=== PATIENT | female | born 1965 | race Caucasian/White ===

== ENCOUNTER → 2017-03-15 | Outpatient (CLI) | payer BC ==
[~2017-03-15] MED LIST: ASCO-78 PO; DOXY100C2 PO; ERGO500027 PO; GUAI600T47 PO; IOHEXOL 300 MG/ML 75 ML VIAL. IV ONE; IPRA3AMP NEB; KETO10TA PO; LATA2.5D3 EACHEYE; METH4TAB2 PO; Nicotine 21MG TD; ORPH-16 PO
--- NOTE | 2017-03-15 09:35 | RAD ---
CT of the chest with contrast 03/15/2017 Indication: [Cough, shortness of breath. Fever. Elevated white blood cell count] Comparison study: None available] Technique: Multidetector CT imaging of the chest was performed following the administration of intravenous contrast. Multiple reconstructions including sagittal and coronal reconstructions were created on an independent workstation and reviewed. Findings: Heart size is normal. No significant pericardial effusion is seen. No pathologic mediastinal adenopathy is identified. No focal consolidation or infiltrate is seen. There is a 5 mm noncalcified nodule in the left lower lobe (axial image 46) No pneumothorax or pleural effusion is seen. No acute osseous abnormality is identified. Limited visualization of the upper abdomen demonstrates no acute abnormality. Impression: 1. No acute infiltrates are identified. 2. 5 mm noncalcified nodule, left lower lobe. Recommend CT follow-up per Fleischner Society guidelines below Fleischner society pulmonary nodule recommendations 2017 guidelines Solid nodules Solitary nodule size: <6 mm low risk patients: no follow-up needed high risk patients: optional CT at 12 months Solitary nodule size: 6-8 mm low risk patients: follow-up at 6-12 months, then consider further follow-up at 18-24 months high risk patients: initial follow-up CT at 6-12 months and then at 18-24 months if no change Solitary nodule size: >8 mm either low or high risk patients consider follow-up CT at 3 months, and/or CT-PET, and/or biopsy Multiple nodules size: <6 mm low risk patients: no routine follow-up high risk patients: optional CT at 12 months Multiple nodules size: 6-8 mm low risk patients: follow-up at 3-6 months, then consider further follow-up at 18-24 months high risk patients: follow-up at 3-6 months, then at 18-24 months if no change Multiple nodules size: >8 mm low risk patients: follow-up at 3-6 months, then consider further follow-up at 18-24 months high risk patients: follow-up at 3-6 months, then at 18-24 months if no change Note: newly detected indeterminate nodule in persons 35 years of age or older. Low risk patients: minimal or absent history of smoking and or other known risk factors high risk patients: history of smoking or of other known risk factors (e.g. first degree relative with lung cancer, or exposure to asbestos, radon, uranium) nodule up to 8 mm is partly solid or is ground glass further follow-up is required after 24 months to exclude possible slow growing adenocarcinoma (DULCE MARIA) PQRS Compliance Statement: One or more of the following individualized dose reduction techniques were utilized for this examination: 1. Automated exposure control 2. Adjustment of the mA and/or kV according to patient size 3. Use of iterative reconstruction technique
== END | disposition home or self-care (01) ==
LOC: CT 08:44
PROVIDERS: ATTEND Physician Assistant
DX: R05 Cough (principal); R06.02 Shortness of breath; R50.81 Fever presenting with conditions classified elsewhere; R91.8 Other nonspecific abnormal finding of lung field; R91.1 Solitary pulmonary nodule; F17.200 Nicotine dependence, unspecified, uncomplicated
CPT/HCPCS: 71260; Q9967

== ENCOUNTER 2017-03-17 11:54 | Inpatient (IN) | payer BC ==
[~2017-03-17] VITALS: Ht 154.9 cm; Wt 78.0 kg
[2017-03-17] MEDS ORDERED: LATA2.5D3 EACHEYE (14:28)
[2017-03-17] MEDS ORDERED: ERGO500027 PO (14:28)
[2017-03-17] MEDS ORDERED: DOXY100C2 PO (14:28)
[2017-03-17] MEDS ORDERED: ASCO-78 PO (14:28)
[2017-03-17] MEDS ORDERED: GUAI600T47 PO (14:28)
[2017-03-17 14:34] LABS: BACTERIA,URINE 0 /HPF (0-FEW); BILIRUBIN,URINE NEG (NEG); CLARITY,URINE CLEAR; COLOR,URINE STRAW; GLUCOSE,URINE NEG (NEG); NITRITE,URINE NEG (NEG); RBC,URINE 0 /HPF (0-2); SQUAMOUS EPITHELIAL CELL,UR FEW /LPF; UROBILINOGEN,URINE 0.2 mg/dL (0.2 mg/dL); WBC,URINE 0 /HPF (0-4)
--- NOTE | 2017-03-17 14:44 | RAD ---
2 views of the Chest 03/17/2017 3:54 PM Indication: shortness of breath Comparison: None Findings: There is no focal consolidation or infiltrate identified. There is no effusion or pneumothorax. The cardiomediastinal silhouette and pulmonary vasculature are within normal limits. No osseous abnormality is identified. Impression: No evidence of acute cardiopulmonary process.
[2017-03-17 14:49] LABS: BASO # 0.1 x10^3/uL (0.0-0.2); BASO % 1 % (0-3); EOS # 0.1 x10^3/uL (0.0-0.7); EOS % 1 % (0-3); HEMOGLOBIN 15.2 g/dL (12.0-15.5); LYMPH # 2.8 x10^3/uL (1.0-4.8); LYMPH % 27 % (24-48); MEAN CORPUSCULAR HEMOGLOBIN 31 pg (25-35); MEAN CORPUSCULAR HGB CONC 34 g/dL (31-37); MEAN CORPUSCULAR VOLUME 92 fL (79-100); MONO # 0.6 x10^3/uL (0.0-1.1); MONO % 6 % (0-9); NEUT # 6.8 x10^3uL (1.8-7.7); NEUT % 66 % (31-73); PLATELET COUNT 316 x10^3/uL (140-400); RED BLOOD COUNT 4.88 x10^6/uL (3.50-5.40); RED CELL DISTRIBUTION WIDTH 12.6 % (11.5-14.5); WHITE BLOOD COUNT 10.3 x10^3/uL (4.0-11.0)
[2017-03-17] MEDS: IPRATRPIUM/ALBUTEROL 0.5/2.5MG 3 ML NEBU. NEB SCH ×2 (14:53→21:34)
[2017-03-17 15:13] LABS: INFLUENZA A PATIENT NEGATIVE (NEGATIVE)
[2017-03-17 15:14] LABS: INFLUENZA B PATIENT NEGATIVE (NEGATIVE)
[2017-03-17 15:22] VITALS: BP 155/101
[2017-03-17 15:29] LABS: ALBUMIN 3.8 g/dL (3.4-5.0); CALCIUM 9.2 mg/dL (8.5-10.1); CREATININE 0.6 mg/dL (0.6-1.0); GFR 106.3; POTASSIUM 3.7 mmol/L (3.5-5.1); TOTAL BILIRUBIN 0.2 mg/dL (0.2-1.0); TOTAL PROTEIN 7.8 g/dL (6.4-8.2)
[2017-03-17] MEDS: IV NORMAL SALINE 1,000ML 1,000 ML IV SCH (15:34)
[2017-03-17 15:43] VITALS: BP 141/81
[2017-03-17 16:03] LABS: SEDIMENTATION RATE 20 (0-25)
--- NOTE | 2017-03-17 19:07 | EKG ---
[address] [address] Test Date: 2017-03-17 Test Time: 14:40:10 Pat Name: DAJUAN OG Department: Room: 117 A Gender: F Sterile Technician: TEN : 1965 Requested By: FRANDY SANCHEZ Order Number: [id number] Reading MD: Regan Mcdonald Measurements Intervals [place] Rate: 95 P: 62 IN: 164 QRS: 45 QRSD: 70 T: 36 QT: 342 QTc: 433 Interpretive Statements SINUS RHYTHM LEFT ATRIAL ABNORMALITY ABNORMAL ECG RI6.01 No previous ECG available for comparison Electronically Signed On 03-20-2017 16:18:07 [employer] INVESTIGATOR by Regan Mcdonald
[2017-03-17 19:28] VITALS: BP 128/66
[2017-03-17] MEDS: ACETAMINOPHEN 325 MG TABLET PO PRN (19:55)
[2017-03-17] MEDS: NON FORMULARY ITEM (Doxycycline Hyclate 1 CAP) PO SCH (19:55)
[2017-03-17] MEDS: LATANOPROST 0.005% OPHTH SOLUTION 2.5ML BOTTLE. OU SCH (19:56)
[2017-03-17] MEDS: ONDANSETRON PF 4 MG/2 ML VIAL. IV PRN (20:46)
[2017-03-18 00:06] VITALS: BP 135/86
[2017-03-18] MEDS: IPRATRPIUM/ALBUTEROL 0.5/2.5MG 3 ML NEBU. NEB SCH ×3 (05:24→14:28)
[2017-03-18 05:52] VITALS: BP 127/92
[2017-03-18 06:41] LABS: BASO % 0 % (0-3); EOS # 0.1 x10^3/uL (0.0-0.7); EOS % 2 % (0-3); HEMATOCRIT 39.8 % (36.0-47.0); HEMOGLOBIN 13.3 g/dL (12.0-15.5); LYMPH # 3.8 x10^3/uL (1.0-4.8); LYMPH % 46 % (24-48); MEAN CORPUSCULAR HEMOGLOBIN 31 pg (25-35); MEAN CORPUSCULAR HGB CONC 34 g/dL (31-37); MEAN CORPUSCULAR VOLUME 93 fL (79-100); MONO # 0.6 x10^3/uL (0.0-1.1); MONO % 7 % (0-9); NEUT # 3.7 x10^3uL (1.8-7.7); NEUT % 45 % (31-73); PLATELET COUNT 273 x10^3/uL (140-400); RED BLOOD COUNT 4.26 x10^6/uL (3.50-5.40); WHITE BLOOD COUNT 8.2 x10^3/uL (4.0-11.0)
[2017-03-18 06:44] LABS: CALCIUM 8.7 mg/dL (8.5-10.1); CREATININE 0.7 mg/dL (0.6-1.0); GFR 88.9; POTASSIUM 3.8 mmol/L (3.5-5.1)
[2017-03-18] MEDS: NON FORMULARY ITEM (Doxycycline Hyclate 1 CAP) PO SCH ×2 (08:10→20:19)
[2017-03-18] MEDS: IV NORMAL SALINE 1,000ML 1,000 ML IV SCH ×2 (08:11)
[2017-03-18] MEDS: ASCORBIC ACID 500 MG TABLET PO SCH (08:11)
[2017-03-18] MEDS: ACETAMINOPHEN 325 MG TABLET PO PRN ×2 (08:29→14:28)
[2017-03-18] MEDS ORDERED: PNEUMOC CONJ VACC 23-VALENT 0.5 ML VIAL. VAX IM ONE (09:00)
[2017-03-18] MEDS: NICOTINE 21MG PATCH. TD SCH (09:00)
[2017-03-18] MEDS ORDERED: FLU VACC QS2017-18 (36MOS+)/PF 0.5 ML SYRINGE. VAX IM ONE (09:00)
[2017-03-18 11:03] VITALS: BP 124/75
[2017-03-18 15:00] VITALS: BP 164/99
[2017-03-18 19:03] VITALS: BP 126/83
[2017-03-18] MEDS: DOXYCYCLINE HYCLATE 100 MG TABLET PO SCH (20:07)
[2017-03-18] MEDS: methylPREDNISolone SOD SUCC PF 40 MG/ML VIAL. IV SCH (20:19)
[2017-03-18] MEDS: LACTOBACILLUS RHAMNOSUS GG 1 CAPSULE. PO SCH (20:19)
[2017-03-18] MEDS: BACLOFEN 10 MG TABLET PO PRN (20:19)
[2017-03-18] MEDS: LATANOPROST 0.005% OPHTH SOLUTION 2.5ML BOTTLE. OU SCH (20:20)
[2017-03-18 22:36] VITALS: BP 145/88
[2017-03-19] MEDS: IPRATRPIUM/ALBUTEROL 0.5/2.5MG 3 ML NEBU. NEB SCH ×4 (05:23→22:03)
--- NOTE | 2017-03-19 05:49 | PN ---
DATE: SUBJECTIVE: A 51-year-old female with acute respiratory distress, acute bronchospasm, resting fairly comfortably, making a little bit of progress. PHYSICAL EXAMINATION: VITAL SIGNS: Blood pressure 120/70, respiratory rate 20, pulse 83, afebrile. LUNGS: Diminished, poor movement of air, bronchospasms. CARDIOVASCULAR: Regular sinus rhythm, S1, S2. ABDOMEN: Soft, nontender. No rebounding, guarding, positive bowel sounds. PLAN: Continue with present regimen. Add some Solu-Medrol. Make further evaluation on her. IMPRESSION: Therefore, acute respiratory distress, acute bronchospasm. FRANDY SANCHEZ MD DR: YUNIOR/radha JOB#: [id number] / [id number]
[2017-03-19 05:51] VITALS: BP 125/78
[2017-03-19] MEDS: BACLOFEN 10 MG TABLET PO PRN (08:50)
[2017-03-19] MEDS: DOXYCYCLINE HYCLATE 100 MG TABLET PO SCH ×2 (08:50→21:47)
[2017-03-19] MEDS: LACTOBACILLUS RHAMNOSUS GG 1 CAPSULE. PO SCH ×2 (08:50→21:47)
[2017-03-19] MEDS: ASCORBIC ACID 500 MG TABLET PO SCH (08:50)
[2017-03-19] MEDS: methylPREDNISolone SOD SUCC PF 40 MG/ML VIAL. IV SCH ×2 (08:54→21:47)
[2017-03-19] MEDS: NICOTINE 21MG PATCH. TD SCH (09:00)
[2017-03-19] MEDS ORDERED: KETOROLAC 60 MG/2 ML VIAL. IM ONE (09:30)
[2017-03-19 10:58] VITALS: BP 113/74
[2017-03-19] MEDS ORDERED: ORPHENADRINE CITRATE 60 MG/2 ML VIAL. IM ONE (13:00)
[2017-03-19] MEDS: ONDANSETRON PF 4 MG/2 ML VIAL. IV PRN (13:13)
[2017-03-19 15:12] VITALS: BP 141/82
[2017-03-19] MEDS: ORPHENADRINE CITRATE 60 MG/2 ML VIAL. IV PRN (19:41)
[2017-03-19] MEDS: KETOROLAC 60 MG/2 ML VIAL. IM PRN (19:42)
[2017-03-19 19:55] VITALS: BP 130/65
[2017-03-19] MEDS: LATANOPROST 0.005% OPHTH SOLUTION 2.5ML BOTTLE. OU SCH (21:47)
--- NOTE | 2017-03-19 21:55 | PN ---
DATE: 03/19/2017 SUBJECTIVE: The patient in with increased shortness of air, feeling somewhat better on the IV prednisone, but still having some labored breathing. The patient having to use some accessory muscles. OBJECTIVE: VITAL SIGNS: Blood pressure 113/70, respiratory rate 18, pulse 90, afebrile. GENERAL: The patient alert and oriented. LUNGS: Decreased breath sounds throughout. CARDIOVASCULAR: Regular sinus rhythm. ABDOMEN: Soft, nontender. EXTREMITIES: No clubbing, cyanosis, edema. The patient has severe lower back pain with movement. IMPRESSION: Acute bronchitis, acute asthma. FRANDY SANCHEZ MD DR: YUNIOR/radha JOB#: [id number] / [id number]
[2017-03-19 23:39] VITALS: BP_SYST 114; BP_SYST 133; BP_DIAS 65; BP_DIAS 79
[2017-03-20 06:22] VITALS: BP 113/69
[2017-03-20 08:25] LABS: BASO # 0.1 x10^3/uL (0.0-0.2); BASO % 1 % (0-3); EOS % 0 % (0-3); HEMOGLOBIN 13.8 g/dL (12.0-15.5); LYMPH % 14 % (24-48); MEAN CORPUSCULAR HEMOGLOBIN 31 pg (25-35); MEAN CORPUSCULAR HGB CONC 33 g/dL (31-37); MEAN CORPUSCULAR VOLUME 94 fL (79-100); MONO # 0.5 x10^3/uL (0.0-1.1); MONO % 3 % (0-9); NEUT # 11.5 x10^3uL (1.8-7.7); NEUT % 82 % (31-73); PLATELET COUNT 285 x10^3/uL (140-400); RED BLOOD COUNT 4.49 x10^6/uL (3.50-5.40); RED CELL DISTRIBUTION WIDTH 13.2 % (11.5-14.5); WHITE BLOOD COUNT 14.1 x10^3/uL (4.0-11.0)
[2017-03-20 08:32] LABS: ALBUMIN 3.5 g/dL (3.4-5.0); ALBUMIN/GLOBULIN RATIO 0.9 (1.0-1.7); CALCIUM 9.3 mg/dL (8.5-10.1); CREATININE 0.6 mg/dL (0.6-1.0); GFR 106.3; POTASSIUM 4.7 mmol/L (3.5-5.1); TOTAL BILIRUBIN 0.1 mg/dL (0.2-1.0); TOTAL PROTEIN 7.3 g/dL (6.4-8.2)
[2017-03-20] MEDS: NICOTINE 21MG PATCH. TD SCH (09:00)
[2017-03-20] MEDS: methylPREDNISolone SOD SUCC PF 40 MG/ML VIAL. IV SCH (09:20)
[2017-03-20] MEDS: ASCORBIC ACID 500 MG TABLET PO SCH (09:21)
[2017-03-20] MEDS: DOXYCYCLINE HYCLATE 100 MG TABLET PO SCH (09:21)
[2017-03-20] MEDS: LACTOBACILLUS RHAMNOSUS GG 1 CAPSULE. PO SCH (09:21)
[2017-03-20] MEDS: KETOROLAC 60 MG/2 ML VIAL. IM PRN (09:36)
[2017-03-20] MEDS: ORPHENADRINE CITRATE 60 MG/2 ML VIAL. IV PRN (09:39)
[2017-03-20 10:30] LABS: % BANDS 4 % (0-9); % LYMPHS 21 % (24-48); % SEGS 74 % (35-66)
[2017-03-20 10:31] LABS: PLT ESTIMATE ADEQUATE (ADEQUATE)
[2017-03-20 10:44] VITALS: BP 171/83
[2017-03-20] MEDS: IPRATRPIUM/ALBUTEROL 0.5/2.5MG 3 ML NEBU. NEB SCH (10:57)
[2017-03-20] MEDS ORDERED: KETO10TA PO (11:05)
[2017-03-20] MEDS ORDERED: ORPH-16 PO (11:05)
[2017-03-20] MEDS ORDERED: IPRA3AMP NEB (11:05)
[2017-03-20] MEDS ORDERED: Nicotine 21MG TD (11:05)
[2017-03-20] MEDS ORDERED: METH4TAB2 PO (11:05)
[2017-03-24] MEDS ORDERED: NON FORMULARY ITEM (Ergocalciferol (Vitamin D2) (Vitamin D2) 1 CAP) PO SCH (09:00)
== END 2017-03-20 13:55 | disposition home or self-care (01) | DRG 203 ==
LOC: 1 SOUTH 13:28
PROVIDERS: ADMIT Family Medicine; ATTEND Family Medicine
DX: J20.9 Acute bronchitis, unspecified (principal); D72.89 Other specified disorders of white blood cells; F17.210 Nicotine dependence, cigarettes, uncomplicated; J45.909 Unspecified asthma, uncomplicated; M79.1 Myalgia; R91.1 Solitary pulmonary nodule; Z82.49 Family history of ischemic heart disease and other diseases of the circulatory system; Z80.8 Family history of malignant neoplasm of other organs or systems; Z80.51 Family history of malignant neoplasm of kidney; Z90.89 Acquired absence of other organs; Z90.49 Acquired absence of other specified parts of digestive tract; Z98.51 Tubal ligation status; Z88.5 Allergy status to narcotic agent; Z91.040 Latex allergy status; Z88.8 Allergy status to other drugs, medicaments and biological substances; Z91.048 Other nonmedicinal substance allergy status
CPT/HCPCS: 36415; 71046; 71260; 80048; 80053; 81001; 82550; 83880; 84484; 85007; 85025; 85379; 85651; 87040; 87070; 87086; 87205; 87804; 90686; 90732; 93005; 94640; 99406; J1885; J1956; J2360; J2405; J2920; J7620; Q9967; J7030

== ENCOUNTER → 2017-04-26 | Outpatient (CLI) | payer BC ==
[~2017-04-26] MED LIST changes: -IOHEXOL 300 MG/ML 75 ML VIAL. IV ONE
--- NOTE | 2017-04-26 09:27 | RAD ---
DATE: 04/26/2017 EXAM: DIGITAL SCREEN BILAT W/CAD HISTORY: Routine screening COMPARISON: 08/12/2015. This study was interpreted with the benefit of Computerized Aided Detection (CAD). The breast parenchyma shows scattered fibroglandular densities. Breast parenchyma level B. FINDINGS: The scattered fibroglandular densities are somewhat nodular in character. Several small smooth nodules in the lateral aspect of the right breast are unchanged. This probably represents a cluster of intramammary lymph nodes. There is a 7 mm smooth nodule in the left breast at the 12:00 location which was not clearly seen on previous studies. The other scattered fibroglandular densities appear unchanged. No suspicious microcalcifications are evident. IMPRESSION: Probable small developing nodule at the 12:00 location in the left breast. Diagnostic mammograms to include spot compression and straight mediolateral views and probably left breast ultrasound are suggested for further evaluation. BI-RADS CATEGORY: 0 INCOMPLETE: NEEDS ADDITIONAL IMAGING EVALUATION AND/OR PRIOR MAMMOGRAMS FOR COMPARISON. RECOMMENDED FOLLOW-UP: ADD ADDITIONAL IMAGING PQRS compliance statement: Patient information was entered into a reminder system with a target due date for the next mammogram. Mammography is a sensitive method for finding small breast cancers, but it does not detect them all and is not a substitute for careful clinical examination. A negative mammogram does not negate a clinically suspicious finding and should not result in delay in biopsying a clinically suspicious abnormality. "Our facility is accredited by the [employer] Mammography Program."
== END | disposition home or self-care (01) ==
LOC: MAMMO 07:49
PROVIDERS: ATTEND Physician Assistant
DX: Z12.31 Encounter for screening mammogram for malignant neoplasm of breast (principal)
CPT/HCPCS: 77067

== ENCOUNTER → 2017-05-10 | Outpatient (CLI) | payer BC ==
--- NOTE | 2017-05-10 10:41 | RAD ---
DATE: 05/10/2017 EXAM: DIGITAL DIAGNOSTIC LT, BREAST LEFT HISTORY: Suspicious screening study COMPARISON: 04/26/2017, 08/12/2015 This study was interpreted with the benefit of Computerized Aided Detection (CAD). The breast parenchyma shows scattered fibroglandular densities. Breast parenchyma level B. FINDINGS: Additional views including CC tomosynthesis imaging confirm the presence of a smooth 7 mm nodule at the 12:00 location. It is best seen on CC sunny image #49. Other nodular opacities in the left breast appear stable when compared to older exams. Left breast ultrasound, 05/10/2017: A targeted ultrasound exam of the left breast was performed at the 12:00 location. There is a tiny anechoic structure measuring 6 x 4 x 2.5 mm. It has smooth margins with a sharp posterior wall. This has the appearance of a small cyst cluster. There appears to correspond in location to the nodule seen on the mammograms. No other abnormality is seen in this region. IMPRESSION: Small benign-appearing cyst cluster at the 12:00 location in the left breast. BI-RADS CATEGORY: 2 BENIGN FINDING(S) RECOMMENDED FOLLOW-UP: 12M 12 MONTH FOLLOW-UP PQRS compliance statement: Patient information was entered into a reminder system with a target due date for the next mammogram. Mammography is a sensitive method for finding small breast cancers, but it does not detect them all and is not a substitute for careful clinical examination. A negative mammogram does not negate a clinically suspicious finding and should not result in delay in biopsying a clinically suspicious abnormality. "Our facility is accredited by the [employer] Mammography Program."
== END | disposition home or self-care (01) ==
LOC: MAMMO 09:12
PROVIDERS: ATTEND Family Medicine
DX: N63.21 Unspecified lump in the left breast, upper outer quadrant (principal); J45.909 Unspecified asthma, uncomplicated; F17.200 Nicotine dependence, unspecified, uncomplicated
CPT/HCPCS: 76641; 77065

== ENCOUNTER 2019-10-21 09:51 | Emergency (ER) | payer BC ==
[~2019-10-21] VITALS: Ht 154.9 cm; Wt 83.0 kg
[~2019-10-21 09:51] MED LIST changes: -IPRA3AMP NEB; +IPRA3AMP29 NEB
[2019-10-21 09:56] VITALS: BP 167/122
--- NOTE | 2019-10-21 10:19 | PHYS DOC ---
Past History Past Medical History: No Pertinent History Alcohol Use: None General Adult EDM: Chief Complaint: ALLERGIC REACTION HPI: HPI: 54-year-old female presents to the ER with complaint of right arm pain and burning sensation in the distribution of the median nerve. She states the pain goes all the way up her arm into her shoulder. This is been ongoing for the past week. Initially her pain was bilateral but the left arm has improved. Patient is concerned she may be having an allergic reaction to her glaucoma medication acetazolamide. She reports that she started this medication approximately 3 weeks before her symptoms started and her duplication specialist felt that this may be the inciting agent so this was stopped a week ago and the patient has received IM injections for an allergic reaction also been on prednisone with some minimal relief. She has no trauma or injury that she knows of and has no neck pain. She has no weakness. She has seen her primary care physician twice and her duplication specialist once in the past week. Of note the patient tells me she has a family history of lupus but has not been diagnosed herself and has no other medical conditions besides glaucoma. Review of Systems: Review of Systems: All other systems negative except as documented in HPI. Heart Score: Risk Factors: Risk Factors: DM, Current or recent (<one month) smoker, HTN, HLP, family history of CAD, obesity. Risk Scores: Score 0 - 3: 2.5% MACE over next 6 weeks - Discharge Home Score 4 - 6: 20.3% MACE over next 6 weeks - Admit for Clinical Observation Score 7 - 10: 72.7% MACE over next 6 weeks - Early Invasive Strategies Allergies: Allergies: Allergies Coded Allergies Type Severity Reaction Last Updated Verified adhesive tape Allergy Intermediate 03/19/17 Yes albuterol Allergy Intermediate 03/19/17 Yes azithromycin Allergy Intermediate 03/19/17 Yes codeine Allergy Intermediate 03/19/17 Yes hydrocodone Allergy Intermediate 03/19/17 Yes latex Allergy Intermediate 03/19/17 Yes lorazepam Allergy Intermediate 03/19/17 Yes Physical Exam: PE: Constitutional: Well developed, well nourished, anxious HENT: Normocephalic, atraumatic, bilateral external ears normal, oropharynx moist, no oral exudates, nose normal. [] Eyes: PERRLA, EOMI, conjunctiva normal, no discharge. [] Neck: Normal range of motion, no tenderness, supple, no stridor. [] Cardiovascular:Heart rate regular rhythm, no murmur [] Lungs & Thorax: Bilateral breath sounds clear to auscultation [] Abdomen: Bowel sounds normal, soft, no tenderness, no masses, no pulsatile masses. [] Skin: Warm, dry, no erythema, no rash. [] Back: No tenderness, no CVA tenderness. [] Extremities: No tenderness, no cyanosis, no clubbing, ROM intact, no edema. [] Neurologic: Alert and oriented X 3, normal motor function, patient has a burning and pain sensation in the median nerve distribution of the right arm. There is no weakness or sensory deficit. Psychologic: Affect normal, judgement normal, mood normal. [] Current Patient Data: Vital Signs: Vital Signs Date Time Temp Pulse Resp B/P (MAP) Pulse Ox O2 Delivery O2 Flow Rate FiO2 10/21/19 09:56 97.6 101 18 167/122 (137) 97 Room Air EKG: EKG: [] Radiology/Procedures: Radiology/Procedures: [] Course & Med Decision Making: Course & Med Decision Making Pertinent Labs and Imaging studies reviewed. (See chart for details) 1018: The patient is seen for right arm burning and pain. Etiology is unclear at this time. Will check basic labs. Patient does not have appreciable swelling or concern for DVT. If her work-up is negative will refer her to neurology. 1128: Patient's work-up is complete at this time and is remarkable for mild leukocytosis which is likely secondary to her prednisone use. Her CRP is negative and the remainder of her labs are unremarkable. She still is having ongoing discomfort mostly in her thumb at this time. She has no appreciable swelling which would make me concerned for possible DVT. I do not think this is an allergic reaction based on the fact that she has been off any new medications for over a week now and she has been on prednisone and Benadryl. Have instructed her to stop the Benadryl, continue prednisone, will provide tramadol and ibuprofen for pain. Refer to neurology for further evaluation. Vu Disclaimer: Vu Disclaimer: This electronic medical record was generated, in whole or in part, using a voice recognition dictation system. Departure Departure: Impression: Primary Impression: Paresthesias in right hand Disposition: 01 HOME/RESIDENCE PRIOR TO ADM Condition: STABLE Referrals: OMEGA CONTRERAS MD Please call for follow up appointment upon discharge. Patient Instructions: Paresthesia Scripts Ibuprofen (IBUPROFEN) 800 Mg Tablet 1 TAB PO TID for Pain, #20 TAB 1 Refill Prov: HEIDY POOLE DO 10/21/19 Tramadol Hcl (TRAMADOL HCL) 50 Mg Tablet 50 MG PO PRN Q6HRS PRN for PAIN for 3 Days, #15 TAB 0 Refills Prov: HEIDY POOLE DO 10/21/19 Justification of Admission: Justification of Admission: Justification of Admission Dx: N/A HEIDY POOLE DO Oct 21, 2019 10:19
[2019-10-21 10:39] LABS: BASO # 0.1 x10^3/uL (0.0-0.2); BASO % 1 % (0-3); EOS # 0.2 x10^3/uL (0.0-0.7); EOS % 2 % (0-3); HEMATOCRIT 47.9 % (36.0-47.0); HEMOGLOBIN 15.7 g/dL (12.0-15.5); LYMPH # 5.4 x10^3/uL (1.0-4.8); LYMPH % 42 % (24-48); MEAN CORPUSCULAR HEMOGLOBIN 30 pg (25-35); MEAN CORPUSCULAR HGB CONC 33 g/dL (31-37); MEAN CORPUSCULAR VOLUME 92 fL (79-100); MONO # 0.8 x10^3/uL (0.0-1.1); MONO % 7 % (0-9); NEUT # 6.3 x10^3uL (1.8-7.7); NEUT % 49 % (31-73); PLATELET COUNT 313 x10^3/uL (140-400); RED BLOOD COUNT 5.19 x10^6/uL (3.50-5.40); RED CELL DISTRIBUTION WIDTH 12.8 % (11.5-14.5); WHITE BLOOD COUNT 12.8 x10^3/uL (4.0-11.0)
[2019-10-21 10:51] LABS: ANION GAP 14 (6-14); BLOOD UREA NITROGEN 14 mg/dL (7-20); CARBON DIOXIDE 19 mmol/L (21-32); CHLORIDE 106 mmol/L (98-107); CREATININE 0.7 mg/dL (0.6-1.0); GFR 87.9; GLUCOSE 105 mg/dL (70-99); POTASSIUM 3.6 mmol/L (3.5-5.1); SODIUM 139 mmol/L (136-145)
[2019-10-21 10:53] LABS: MAGNESIUM 2.4 mg/dL (1.8-2.4)
[2019-10-21 10:54] LABS: C REACTIVE PROTEIN < 0.5 mg/L (0-3.3)
[2019-10-21] MEDS ORDERED: TRAM50TA PO (11:31)
[2019-10-21] MEDS ORDERED: IBUP800T19 PO (11:31)
[2019-10-21 13:53] LABS: FREE T4 1.53 ng/dL (0.76-1.46); THYROID STIM HORMONE (TSH) 2.786 uIU/mL (0.358-3.740)
== END 2019-10-21 11:37 | disposition home or self-care (01) ==
LOC: ER 09:51
DX: R20.2 Paresthesia of skin (principal); M79.601 Pain in right arm; R20.8 Other disturbances of skin sensation; Z88.8 Allergy status to other drugs, medicaments and biological substances; Z88.1 Allergy status to other antibiotic agents; Z91.040 Latex allergy status; Z88.5 Allergy status to narcotic agent
CPT/HCPCS: 36415; 80048; 83735; 84439; 84443; 85025; 86140; 99283

== ENCOUNTER → 2020-06-24 | Outpatient (CLI) | payer BC ==
[~2020-06-24] MED LIST changes: +IBUP800T19 PO; +TRAM50TA PO
--- NOTE | 2020-06-24 09:24 | RAD ---
EXAM: Bilateral digital screening mammogram with tomosynthesis. HISTORY: 55-year-old female presents for screening mammography. TECHNIQUE: Full-field digital craniocaudal and mediolateral oblique 2D and 3D tomosynthesis images of both breasts are obtained for evaluation. Computer aided detection was applied. COMPARISON: 04/26/2017 BREAST PARENCHYMAL DENSITY: Level A - Mostly fat. FINDINGS: There is no new suspicious mass, microcalcification or region of architectural distortion. There are stable areas of asymmetry and nodularity within both breasts, allowing for differences in i maging technique. IMPRESSION: BI-RADS Category 2: Benign finding(s). RECOMMENDATION: Annual mammography is recommended. If your mammogram demonstrates that you have dense breast tissue, which could hide abnormalities, and if you have other risk factors for breast cancer that have been identified, you might benefit from s upplemental screening tests that may be suggested by your ordering physician. Dense breast tissue, i n and of itself, is a relatively common condition. This information is not provided to cause undue c oncern, but rather to raise your awareness and to promote discussion with your physician regarding th e presence of other risk factors, in addition to dense breast tissue. A report of your mammography re sults will be sent to you and your physician. You should contact your physician if you have any ques tions or concerns regarding this report. Mammography is a sensitive method for finding small breast cancers, but it does not detect them all a nd is not a substitute for careful clinical examination. A negative mammogram does not negate a clin ically suspicious finding and should not result in delay in biopsying a clinically suspicious abnorma lity. PQRS compliance statement - Patient information was entered into a reminder system with a target due date for the next mammogram. "Our facility is accredited by the [employer] Mammography Program." Electronically signed by: Jacinta Greer MD (06/24/2020 9:22 AM) [id number]
== END ==
LOC: MAMMO 07:46
PROVIDERS: ATTEND Family Medicine
DX: Z12.31 Encounter for screening mammogram for malignant neoplasm of breast (principal)
CPT/HCPCS: 77063; 77067